=== PATIENT | female | born 2000 | race Caucasian/White ===

== ENCOUNTER 2022-04-01 13:42 | Emergency (ER) | payer OTHER, SELFPAY ==
[2022-04-01 13:51] VITALS: BP 131/91; PULSE 90; RESP 18; TEMP 36.6; O2SAT 100; BMI 22.7
--- OUTSIDE RECORDS SUMMARY | 2022-04-01 14:33 | XMS_ITS ---
:2001 Author Care Team Providers Name Role Phone Alcides Pelaez Primary Care Provider Unavailable Allergies Code Code System Name Reaction Severity Status Onset NKDA ? Medications Name Status Start Date Stop Date ? ? albuterol sulfate HFA 90 mcg/actuation aerosol inhaler Completed ? 02/24/2022 alprazolam 0.5 mg tablet Active ? Not jelani ilable amoxicillin 500 mg capsule Completed ? 01/23 amoxicillin 875 mg tablet Completed ? 2019 amoxicillin 875 mg-potassium clavulanate 125 mg tablet Completed ? 01/08/2020 azithromycin 250 mg tablet Completed ? 01/07 benzonatate 100 mg capsule Completed ? 02/24 cephalexin 500 mg capsule Completed ? 2021 clonidine Completed ? 07/24/2018 2 daily clonidine HCl 0.1 mg tablet Completed ? 12/19 clonidine HCl ER 0.1 mg tablet,extended release,12 hr Completed ? 01/23/2021 Take 2 tablets every day by oral route in the evening for 90 da ys. dexmethylphenidate 5 mg tablet Completed ? 0 10/26/2017 drospirenone 3 mg-ethinyl estradiol 0.03 mg tablet Active ? Not available TAKE ONE TABLET BY MOUTH EVERY DAY (NO DAYS OFF CONTINUOUS USE) etonogestrel 0.12 mg-ethinyl estradiol 0.015 mg/24 hr Completed ? 08/26/2020 vaginal ring Flucelvax Quad (PF) 60 mcg (15 mcg x 4)/0.5 mL IM syri nge Completed ? 09/03/2021 TO BE ADMINISTERED BY PHARMACIST FOR IMMUNIZATION Focalin 2.5 mg tablet Completed ? 10/26/2017 gabapentin 300 mg capsule Completed ? 2017 gabapentin 400 mg capsule Completed ? 2017 hydrocodone 5 mg-acetaminophen 325 mg tablet Completed ? 01/23/2021 Lo-Zumandimine (28) 3 mg-0.02 mg tablet Completed ? 09/11/2021 melatonin Completed ? 02/24/2022 ofloxacin 0.3 % ear drops Completed ? 2019 ondansetron 4 mg disintegrating tablet Completed ? 02/24/2022 TAKE 1 TABLET BY MOUTH EVERY 8 HOURS NEEDED FOR NAUSEA ondansetron HCl 4 mg tablet Completed ? 12/2021 oxycodone 5 mg tablet Completed ? 02/24/2022 polymyxin B sulfate 10,000 unit-trimethoprim 1 mg/mL eye drops C ompleted ? 01/08/[address] PLACE ONE DROP into affected eye(s) PREMA RY 6 HOURS FOR 48 hours THEN THREE TIMES DAILY FOR 7 DAYS sertraline 100 mg tablet Active ? Not jelani ilable TAKE 1 TABLET BY MOUTH EVERY DAY sertraline 25 mg tablet Completed ? 01/08/20 sertraline 50 mg tablet Completed ? 01/24/20 Vyvanse 10 mg capsule Completed ? 01/23/2021 TAKE ONE CAPSULE BY MOUTH EVERY MORNING Vyvanse 20 mg capsule Completed ? 09/11/2021 Vyvanse 30 mg capsule Active ? Not availa ble Take 1 capsule every day by oral route. Zoloft Completed ? 01/08/2020 75mg (50+25) daily Problems Name Status Onset Date Source ? Macromastia Active 10/26/2017 ? Orgasm Incapacity Active 07/25/2018 ? Dysmenorrhea Active 07/25/2018 ? Fatigue Active 07/25/2018 ? Attention Deficit Hyperactivity Disorder Active 020 ? Premenstrual Dysphoric Disorder Active 08/26/2020 ? Pericardial Cyst Active 11/13/2021 ? Anxiety Active ? ? Procedures Date Name Performed by ? 02/04/2022 Thoracic Surgery Ss Information not avai lable Results Lab Results Date Name Specimen Result Interpretation Description Value Range Status Address ? 02/24/2022 Chlamydia + ? Result CT Not ? ? In-Office Gonorrhea Chlamydia Detected Or myesha: DNA Panel, Trachomatis/Not Internal Use Unspecified Detected Onl y DO Not Specimen Attach Compendium DO Not Attach Compendium , Do Not Delete/yola ge ? ? ? Result NG Not ? ? In-Office Neisseria Detected Order : Gonorrhea/Not Int ernal Use Detected Only DO Not Attach Compendium DO Not Attach Compendium , Do Not Delete/yola ge 02/24/2022 Screening ? R Eye Corrected 20/20 ? ? In-Office Test of Order: Visual Internal U se Acuity, Only DO N ot Quantitative Jori ch , Bilateral Compe ndium DO (PROC) Not Attach Compendium , Do Not Delete/yola ge ? ? ? L Eye Corrected 20/25 ? ? In-Office Order: Internal U se Only DO No t Attach Compendium DO Not Attach Compendium , Do Not Delete/yola ge ? ? ? Bilateral Eyes 20/20 ? ? I n-Office Corrected Order: Internal U se Only DO No t Attach Compendium DO Not Attach Compendium , Do Not Delete/yola ge 02/24/2022 Hearing ? Right Ear 500Hz Pass 25Db ? ? In-Office Screening* Order: Internal U se Only DO No t Attach Compendium DO Not Attach Compendium , Do Not Delete/yola ge ? ? ? Left Ear 500Hz Pass 25Db ? ? In-Office Order: Internal U se Only DO No t Attach Compendium DO Not Attach Compendium , Do Not Delete/yola ge ? ? ? Right Ear Pass 25Db ? ? In- Office 1000Hz Order: Internal U se Only DO No t Attach Compendium DO Not Attach Compendium , Do Not Delete/yola ge ? ? ? Left Ear 1000Hz Pass 25Db ? ? In-Office Order: Internal U se Only DO No t Attach Compendium DO Not Attach Compendium , Do Not Delete/yola ge ? ? ? Right Ear Pass 25Db ? ? In- Office 2000Hz Order: Internal U se Only DO No t Attach Compendium DO Not Attach Compendium , Do Not Delete/yola ge ? ? ? Left Ear 2000Hz Pass 25Db ? ? In-Office Order: Internal U se Only DO No t Attach Compendium DO Not Attach Compendium , Do Not Delete/yola ge ? ? ? Right Ear Pass 25Db ? ? In- Office 4000Hz Order: Internal U se Only DO No t Attach Compendium DO Not Attach Compendium , Do Not Delete/yola ge ? ? ? Left Ear 4000Hz Pass 25Db ? ? In-Office Order: Internal U se Only DO No t Attach Compendium DO Not Attach Compendium , Do Not Delete/yola ge 05/16/2020 SARS CoV 2 ? Sars-cov-2, SABRINA not not Final [facility] RNA detected detecte ([place]): (COVID-19), d [address], QL, cullet washer-PCR, [facility] Respiratory Specimen 11/05/2019 CT + NG RNA, UR ? Chlamydia negative negativ Final [facility] PCR, Trachomatis, SABRINA e ([place]): Unspecified [address], Specimen [place] ? ? UR ? Neisseria negative negativ Final Lab varun Gonorrhoeae, SABRINA e ([place]): [address], [place] 11/05/2019 Hsv (1+2) ? Hsv 1 IgG, Type <0.91 0.00-0. Final [facility] Igg Ab, Spec index 90 [facility] Serum index [address], [place] ? ? ? Hsv 2 IgG, Type <0.91 0.00-0. Final [facility] Spec index 90 ([facility]): index [address], [place] 11/05/2019 RPR (Rapid ? Rpr non non Final [facility] Plasma reactive reactiv ([facility]): [place]), e [address], Serum [place] 11/05/2019 HIV 1+2 AB + ? HIV Screen 4TH non non Final [facility] HIV 1 P24 Generation Wrfx reactive reactiv ([place]): Ag, e [address], Qualitative [place] Immunoassay, Serum 12/20/2018 TSH + Free ? Tsh 1.430 0.450-4 Final [facility] T4, Serum uIU/mL .500 ([facility] [place]): uIU/mL [address] [facility], [place] ? ? ? T4,Free(direct) 1.10 0.93-1. Final [facility] NG/dL 60 ([facility] n): NG/dL [address], [place] 12/20/2018 CBC W/ Auto ? Wbc 7.4 3.4-10. Final [facility] Diff x10e3/uL 8 ([facility]): x10e3/u [address], L [place] ? ? ? Rbc 4.94 3.77-5. Final [facility] x10e6/uL 28 ([facility]): x10e6/u [address], [place] ? ? ? Hemoglobin 13.9 g/dL 11.1-15 Final [facility] .9 g/dL ([facility] [address], [place] ? ? ? Hematocrit 42.4 % 34.0-46 Final [facility] orp .6 % ([facility] n): [address], [place] ? ? ? Mcv 86 fL 79-97 Final [facility] fL ([facility] n): [address], [place] ? ? ? Mch 28.1 pg 26.6-33 Final [facility] .0 pg ([facility] n): [address], [place] ? ? ? Mchc 32.8 g/dL 31.5-35 Final [facility] p .7 g/dL ([facility] [address], [place] ? ? ? Rdw 12.4 % 12.3-15 Final [facility] .4 % ([facility] n): [address], [place] ? ? ? Platelets 317 150-450 Final [facility] x10e3/uL x10e3/u ([facility]): L [address], [place] ? ? ? Neutrophils 58 % not Final [facility] or[facility] estab. ([facility] n): % [address], [place] ? ? ? Lymphs 31 % not Final [facility] estab. ([facility] n): % [address], [place] ? ? ? Monocytes 9 % not Final [facility] p estab. ([facility] n): % [address], [place] ? ? ? Eos 1 % not Final [facility] estab. ([facility] n): % [address], [place] ? ? ? Basos 1 % not Final [facility] estab. ([facility] n): % [address], [place] ? ? ? Immature Cells web applications architect ? Cancel [facility] led ([facility] n): [address], [place] ? ? ? Neutrophils 4.4 1.4-7.0 Final Lab varun (Absolute) x10e3/uL x10e3/u ([place]): L [address], [place] ? ? ? Lymphs 2.3 0.7-3.1 Final [facility] (Absolute) x10e3/uL x10e3/u ([place]): L [address], [place] ? ? ? Monocytes(absol 0.7 0.1-0.9 Final [facility] johnson) x10e3/uL x10e3/u ([facility]): L [address] [facility], [place] ? ? ? Eos (Absolute) 0.1 0.0-0.4 Final [facility] x10e3/uL x10e3/u ([facility]): L [address] [facility], [place] ? ? ? Baso (Absolute) 0.1 0.0-0.3 Final [facility] x10e3/uL x10e3/u ([facility]): L [address] [facility], [place] ? ? ? Immature 0 % not Final [facility] Granulocytes estab. ([facility]): % [address] [facility], [place] ? ? ? Immature Grans 0.0 0.0-0.1 Final [facility] (Abs) x10e3/uL x10e3/u ([facility]): L [address] [facility], [place] ? ? ? Nrbc web applications architect ? Cancel [facility] led ([facility]): [address] [facility] ? ? ? Hematology web applications architect ? Cancel [facility] Comments: led ([facility]): [address] [facility] 12/20/2018 CMP, Serum ? Glucose 80 mg/dL 65-99 Final [facility] or Plasma mg/dL ([facility]): [address] [facility] ? ? ? Bun 10 mg/dL 5-18 Final [facility] mg/dL ([facility]): [address] [facility] ? ? Below Creatinine 0.54 0.57-1. Final [facility] Low mg/dL 00 ([facility]): Normal mg/dL [address] [facility] ? ? ? BUN/creatinine 19 10-22 Final [facility] Ratio ([facility]): [address] [facility] ? ? ? Sodium 141 134-144 Final [facility] mmol/L mmol/L ([facility]): [address] [facility] ? ? ? Potassium 4.4 3.5-5.2 Final [facility] mmol/L mmol/L ([facility]): [address] [facility] ? ? ? Chloride 105 96-106 Final [facility] mmol/L mmol/L ([facility]): [address] [facility] ? ? ? Carbon Dioxide, 22 mmol/L 20-29 Renetta l [facility] Total mmol/L ([facility] n): [address] [facility], [place] ? ? ? Calcium 9.6 mg/dL 8.9-10. Final [facility] orp 4 mg/dL ([facility] on): [address], [place] ? ? ? Protein, Total 6.8 g/dL 6.0-8.5 Final [facility] g/dL ([facility] n): [address], [place] ? ? ? Albumin 4.3 g/dL 3.5-5.5 Final [facility] g/dL ([facility] n): [address], [place] ? ? ? Globulin, Total 2.5 g/dL 1.5-4.5 Renetta l [facility] g/dL ([facility] n): [address] [facility], [place] ? ? ? A/g Ratio 1.7 1.2-2.2 Final [facility] ([facility] n): [address] [facility], [place] ? ? ? Bilirubin, 0.3 mg/dL 0.0-1.2 Final [facility] Total mg/dL ([facility]): [address] [facility], [place] ? ? ? Alkaline 61 IU/L 45-101 Final [facility] p Phosphatase IU/L ([facility]): [address] [facility], [place] ? ? ? Ast (Sgot) 8 IU/L 0-40 Final [facility] IU/L ([facility]): [address] [facility], [place] ? ? ? Alt (Sgpt) 8 IU/L 0-24 Final [facility] IU/L ([facility]): [address] [facility] 12/20/2018 Vitamin B12 ? Vitamin B12 326 pg/mL 232-12 4 Final [facility] + Folate, 5 pg/mL ([facility]): Serum or [address], Blood [place] ? ? ? Folate (Folic >20.0 >3.0 Final [facility] Acid), Serum NG/mL NG/mL ([facility]): [address] [facility] 12/20/2018 Vitamin D, ? Vitamin D, 34.0 30.0-10 Fin al [facility] 25-Hydroxy, 25-Hydroxy NG/mL 0.0 ( [place]): Total, Serum NG/mL [address] [facility] 12/20/2018 Ferritin, ? Ferritin, Serum 49 NG/mL 15-77 Final [facility] Serum or NG/mL ([facility]): Plasma [address] [facility] 07/10/2018 CMP, Serum ? Glucose 87 mg/dL 65-99 Final [facility] or Plasma mg/dL ([facility]): [address] [facility], [place] ? ? ? Bun 14 mg/dL 5-18 Final [facility] mg/dL ([facility]): [address] [facility], [place] ? ? ? Creatinine 0.60 0.57-1. Final [facility] mg/dL 00 ([facility]): mg/dL [address] [facility], [place] ? ? Above BUN/creatinine 23 10-22 Final [facility] High Ratio ([facility]): Normal [address] [facility], [place] ? ? ? Sodium 139 134-144 Final [facility] mmol/L mmol/L ([facility]): [address] [facility], [place] ? ? ? Potassium 4.8 3.5-5.2 Final [facility] mmol/L mmol/L ([facility]): [address] [facility], [place] ? ? ? Chloride 98 mmol/L 96-106 Final [facility] mmol/L ([facility]): [address] [facility], [place] ? ? ? Carbon Dioxide, 22 mmol/L 20-29 Renetta l [facility] Total mmol/L ([facility]): [address] [facility], [place] ? ? ? Calcium 10.2 8.9-10. Final [facility] mg/dL 4 mg/dL ([facility] on): [address] [facility] ? ? ? Protein, Total 7.2 g/dL 6.0-8.5 Final [facility] g/dL ([facility]): [address] [facility] ? ? ? Albumin 4.9 g/dL 3.5-5.5 Final [facility] g/dL ([facility]): [address] [facility], [place] ? ? ? Globulin, Total 2.3 g/dL 1.5-4.5 Renetta l [facility] g/dL ([facility]): [address] [facility], [place] ? ? ? A/g Ratio 2.1 1.2-2.2 Final [facility] ([facility] ? ? ? Bilirubin, 0.2 mg/dL 0.0-1.2 Final [facility] Total mg/dL ([facility]): [address] [facility] ? ? ? Alkaline 96 IU/L 45-101 Final [facility] p Phosphatase IU/L ([facility]): [address] [facility] ? ? ? Ast (Sgot) 13 IU/L 0-40 Final [facility] IU/L ([facility]): [address] [facility] ? ? ? Alt (Sgpt) 19 IU/L 0-24 Final [facility] IU/L ([facility]): [address] [facility] 07/10/2018 Lipid Panel, ? Cholesterol, 163 mg/dL 100- 169 Final [facility] Serum Total mg/dL ([facility]): [address] [facility] ? ? Above Triglycerides 134 mg/dL 0-89 Final [facility] High mg/dL ([facility]): Normal [address] [facility] ? ? ? HDL Cholesterol 45 mg/dL >39 Final [facility] mg/dL ([facility]): [address] [facility] ? ? ? VLDL 27 mg/dL 5-40 Final [facility] Cholesterol Sarabjit mg/dL ( [place]): [address] [facility] ? ? ? LDL Cholesterol 91 mg/dL 0-109 Final [facility] Calc mg/dL ([facility]): [address] [facility] ? ? ? Comment: web applications architect ? Cancel [facility] led ([facility]): [address] [facility] ? ? ? T. chol/HDL 3.6 ratio 0.0-4.4 Final [facility] Ratio ratio ([facility]): [address] [facility] 07/10/2018 HbA1C ? Hemoglobin a1C 5.3 % 4.8-5.6 Fin al [facility] (Hemoglobin % ([facility]): a1C), Blood [address] [facility] Past Encounters 02/24/2022 Well Child; Anxiety; Attention Deficit H yperactivity Disorder; Dysmenorrhea; Contraception Care Management; Normal Weight; Exercises Education, Guidance, and Counseling; Diet Education; Screening for Disorder; Administration of Influenza Vaccine Meena Houston MD: [id number], [address], [place] [address], Ph. [phone] 09/25/2021 Mediastinal Mass Meena Houston MD: [address], [address], [place] [address], Ph. [phone] 09/11/2021 Anxiety; Attention Deficit Hyperactivity Disorder; Dysmenorrhea Meena Houston MD: [id number] [facility], [facility] [address], [place] [address], Ph. [phone] 01/23/2021 Anxiety; Attention Deficit Hyperactivity Disorder; Dysmenorrhea; Wheezing Meena Houston MD: [id number] [facility] [address] [address], [address], [place] [address], Ph. [phone] Social History None recorded. Vaccine List Vaccine Type DT (pediatric) 06/17/2004 DTaP, unspecified formulation 2001 2001 2001 11/09/2002 07/20/2005 Hep A, ped/adol, 2 dose 11/04/2005 05/18/2006 Hep B, unspecified formulation 2001 2001 2001 Hib, unspecified formulation 2001 2001 2001 06/01/2002 HPV, quadrivalent 10/22/2015?0.5 mL HPV9 10/25/2016?0.5 mL influenza nasal, unspecified formulation 05/01/2009 03/22/2013 influenza, injectable, quadrivalent, pre servative free 02/24/2022 MCV4, unspecified formulation 08/01/2014 meningococcal MCV4P 10/26/2017?0.5 mL MMR 03/02/2002 07/20/2005 Pneumococcal Conjugate, unspecified form ulation 11/09/2002 polio, unspecified formulation 2001 2001 11/09/2002 07/20/2005 Tdap 08/19/2011 02/24/2022?0.5 mL TST-PPD intradermal 03/02/2002 08/19/2011 varicella 03/02/2002 07/20/2005 Plan of Care Patient Instructions Your child looks great. Please return i n one year for next well visit. No vaccines were needed at this visit. Make sure to use helmets for activities, always wear seat belt/sit in right seat for your age. Bru sh your teeth 2 times a day and see the dentist every 6 months. Watch less than 2 hours of TV a day and try to stay healthy by eating a good variety of foods and ge tting exercise daily. Do not smoke, drink,?or do drugs. Reminders Provider Appointments None recorded. ? ? Lab None recorded. ? ? Referral None recorded. ? ? Procedures None recorded. ? ? Surgeries None recorded. ? ? Imaging None recorded. ? ? Vitals 02/24/2022 01:30PM Wellness Visit Height Weight BMI Blood Pressure 64 in 130 lbs 22.3 kg/m2 118/62 mm[Hg] 01/08/2020 10:00AM [facility] Wellness Virtual Visit Weight 122 lbs 16 oz 02/01/2019 12:15PM Same Day Visit Weight 137 lbs 9.6 oz 12/20/2018 11:45AM Wellness Visit Height Weight BMI Blood Pressure 63.5 in 136 lbs 12.8 oz 23.9 kg/m2 110/68 mm[Hg] 07/24/2018 03:30PM Established Patient Height Weight BMI Blood Pressure 64 in 141 lbs 6.4 oz 24.3 kg/m2 98/68 mm[Hg] 10/26/2017 03:00PM Wellness Visit Height Weight BMI Blood Pressure 64 in 140 lbs 6.4 oz 24.1 kg/m2 92/60 mm[Hg] 05/02/2017 03:30PM Established Patient Weight 139 lbs 10/25/2016 10:30AM Wellness Visit Height Weight BMI Blood Pressure 64 in 126 lbs 21.6 kg/m2 114/74 mm[Hg] 10/22/2015 03:30PM Physical Height Weight BMI Blood Pressure 61.5 in 113 lbs 21 kg/m2 110/70 mm[Hg] 03/04/2015 03:30PM New Patient Height Weight BMI 60.75 in 108 lbs 20.6 kg/m2
--- OUTSIDE RECORDS SUMMARY | 2022-04-01 14:33 | XMS_ITS | Encounter Summary ---
:2000 Author Reason for Visit None recorded. Assessment and Plan 1. Well child Doing well. Questions discussed. Antici patory guidance given. Vaccines per schedule. ? hearing screening* ? screening test of visual acuity, jil titative, bilateral (PROC) ? Adacel (Tdap Adolesn/Adult)(PF)2 Lf-( 2.5-5-3-5)-5 Lf/0.5 mL IM syringe 2. Anxiety with depressive features feels like things are situational ? sertraline 100 mg tablet 3. Attention deficit hyperactivity diso rder Stable on current regimen. Medication r efilled x 3 months. Med check needed in 6 months. Call with concerns or problems. Discussion of time management, impulsivity, organization and executive functioning t o work on. ? Vyvanse 30 mg capsule ? Vyvanse 30 mg capsule ? Vyvanse 30 mg capsule 4. Dysmenorrhea likes current OCP. Ok to refill until w ellness. 5. Contraception care management would like to get nexplanon. [employer] referr al. has seen [facility] women's care in the past. ? drospirenone 3 mg-ethinyl estradiol 0 .03 mg tablet 6. Normal weight 7. Exercises education, guidance, and c ounseling 8. Diet education 9. Screening for disorder ? chlamydia + gonorrhea DNA panel, unsp ecified specimen 10. Administration of influenza vaccine ? Fluzone Quad [id number] (PF) 60 mcg (1 5 mcg x 4)/0.5 mL IM syringe Discussion Note: None recorded.Patient educational handouts: No information available. Plan of Care Patient Instructions Your child [...] Provider Appointments None recorded. ? ? Lab Chlamydia + Gonorrhea DNA Panel, 02/24/2022 In-Office Order Unspecified Specimen Referral None recorded. ? ? Procedures Screening Test of Visual Acuity, 02/24/2022 In-Office Order Quantitative, Bilateral (PROC) Surgeries None recorded. ? ? Imaging None recorded. ? ? Medications Name Start Date ? ? drospirenone 3 mg-ethinyl estradiol 0.03 mg tablet ? TAKE ONE TABLET BY MOUTH EVERY DAY (NO DAYS OFF DAYDAY NUOUS USE) sertraline 100 mg tablet ? TAKE 1 TABLET BY MOUTH EVERY DAY Vyvanse 30 mg capsule ? Take 1 capsule every day by oral route. Medications Administered None recorded. Vitals Height Weight BMI Blood Pressure 64 in 130 lbs 22.3 kg/m2 118/62 mm[Hg] Results Lab Results Date Name Specimen Result Interpretation Description Value Range Status Address ? 02/24/2022 Chlamydia + ? Result Chlamydia CT Not ? ? In-Office Gonorrhea DNA Trachomatis/Not Detected Order: Internal Panel, Detected Use Only DO Not Unspecified Attac h Specimen Compendi um DO Not Attach Compendium , Do Not Delete/yola ge ? ? ? Result Neisseria NG Not ? ? In-Office Gonorrhea/Not Detected O rder: Internal Detected Use Only DO Not Attach Compendium DO Not Attach Compendium , Do Not Delete/yola ge Allergies Code Code System Name Reaction Severity Onset NKDA ? ? ? Problems Name Status Onset Date Source ? Macromastia Active 10/26/2017 ? Orgasm Incapacity Active 07/25/2018 ? Dysmenorrhea Active 07/25/2018 ? Fatigue Active 07/25/2018 ? Attention Deficit Hyperactivity Disorder Active 020 ? Premenstrual Dysphoric Disorder Active 08/26/2020 ? Pericardial Cyst Active 11/13/2021 ? Anxiety Active ? ? Procedures Date Name Performed by ? 02/04/2022 Thoracic Surgery Ss Information not avai lable Vaccine List Vaccine Type DT (pediatric) 06/17/2004 [...] TST-PPD intradermal 03/02/2002 08/19/2011 varicella 03/02/2002 07/20/2005 Social History Custody joint Notes: , M om and Stepdad, father Do you have any siblings? younger sister Functional Status Unknown. Past Encounters 02/24/2022 Well Child; Anxiety; Attention Deficit H yperactivity Disorder; Dysmenorrhea; Contraception Care Management; Normal Weight; Exercises Education, Guidance, and Counseling; Diet Education; Screening for Disorder; Administration of Influenza Vaccine Meena Houston MD: [address] [place] [address], [address], [place] [id number], Ph. [phone] History of Present Illness None recorded. Review of Systems ? Pediatric Female Reported By: Patient Constitutional: Constitutional: no significa nt weight change, gaining weight as expected, good appetite, normal energy level, no fever, no chills, happy/content, milton l activity level, no fatigue Eyes: Eyes: no vision problems, no eye pain, no blurry vision, no eye redness, no eye itchines s, no eye swelling, no eye discharge, normal movement ENMT: ENMT: no ear pain, no ear di scharge, no hearing loss, no sinus pressure, no drooling, no fa cial swelling, no congestion, no sore throat, no hoarseness, no mouth lesions Cardiovascular: Cardiovascular: no chest anna n, normal heart rate Chest/Breasts: Breasts: no lumps, no tender ness, no discharge; feels breasts are too large. Discussed sup port needs and ways to feel secure, no back pain, doesn' t like unwanted attention Respiratory: Respiratory: no cough, no wh eezing, no chest tightness, no pain with respiration, milton l respiration Gastrointestinal: GI: no difficulty swallowing , no abdominal pain, no nausea, no vomiting, no diarrhea, no co nstipation, no blood in stools, no mucous in stool Genitourinary: : no urethral discharge, n o blood in urine, no pain with urination, no increase in fr equency of urination, no voiding urgency, no vaginal discharg e, no genital lesions Musculoskeletal: Musculoskeletal: no soft tis ana swelling, no joint swelling, no myalgia, moves all extrem eties well, no previous injuries, no trauma Skin: Skin: no pain, no itchiness, no skin dryness, no flaking, no redness, no rash, no hives, no skin lesions, no skin growths, no skin lumps, no swelling, no bruising, no insect bites Neurological symptoms: Neurological: no numbness, n o weakness, no tingling, no burning, no shooting pain, n o headache, no dizziness, no loss of conciousness Psychiatric: Psych: anxiety Physical Exam ? 11-13 Yr WC Female Reported By: Patient Unit Technician: Unit Technician: present General Appearance: General: well developed, wel l-nourished, no acute distress Eyes: External Eye: no discharge. Conjunctiva: non-injected. Pupils: equal size, round, reactive to light. Extraocul ar Movements: normal cover/uncover test Ears, Nose, Throat: Ears: tympanic membranes pea rly w/ good landmarks, pinnae well-forme d, no pits. Nose: patent, no crusts/sores. Ton sils: not enlarged, no erythema, no exudate. Aniket th: normal dentition. Oropharynx: milton l mucous membranes Lymph Nodes: Lymph Nodes: no cervical lym phadenopathy, no inguinal lymphadenopathy Neck: Thyroid: not enlarged, non-t shelley, no palpable nodules, no asymmetry Chest: Breasts: symmetric Cardiovascular (supine and upright): Apical impulse: n ot displaced. Rhythm: regular. Heart Sounds (upright): norm al S1, normal S2, no murmur, no gallops, no rub. Heart Sounds (supine): Normal S1, Normal S2, no murmur, no gallops, no rub. Palpation: normal femoral pulse Lungs: Auscultation: clear to auscu ltation, no wheezing, no rales/crackles, no rhonchi, no tachypnea, no retractions Abdomen: Palpation: non-distended, no guarding, no tenderness. Liver: non-tende r, no hepatomegaly. Spleen: non-tender, no splen omegaly Musculoskeletal: General Musculoskeletal: татьяна ssly normal movement of all extremities. Thoracol umbar spine: no scoliosis Skin: Color and Pigmentation: no c yanosis, no rash, no lesions, no acne Neurological System: Mental Status: normal affect , normal mood. Motor: normal strength, norm al tone
--- NOTE | 2022-04-01 14:50 | ED.GENADULT ---
HPI - General Adult General Chief complaint: Shortness of Breath/Dyspnea Stated complaint: Short of breath Time Seen by Provider: 04/01/22 13:44 History of Present Illness HPI narrative: This 22-year-old female comes in reporting chest discomfort and a sense of shortness of breath on and off over the past couple weeks. She does not have any respiratory infection symptoms. He does not have any fevers. She did have a surgery to the right side of her chest about 2 months ago. She had a teratoma removed and states that she recovered from this within a couple weeks afterwards. 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 She wonders if there is a primary anxiety component driving these symptoms. She arrives here with normal vital signs, normal oximetry, and normal heart rate. Related Data Home Medications Medication Instructions Recorded Confirmed sertraline 100 mg tablet mg 04/01/22 Allergies Allergy/AdvReac Type Severity Reaction Status Date / Time No Known Drug Allergies Allergy Verified 04/01/22 13:56 Review of Systems Status of ROS: Reports: 10 or more systems reviewed and unremarkable except as noted in History and below Narrative: Constitutional: No fevers, no weight gain or loss. Eyes: No discharge. No vision changes. HENT: No congestion, no sore throat, no ear pain. Cardiovascular: No palpitations. Chest discomfort as described above. Respiratory: No shortness of breath, no wheezes, no cough. Gastrointestinal: No abdominal pain, no vomiting, no diarrhea. Genitourinary: No dysuria, no hematuria. Musculoskeletal: Normal range of motion. Skin: No rashes, no pruritis. Neurological: No dizziness, weakness, sensory change, speech change. Endo/Heme/Allergies: No bruising or bleeding. No polydipsia. Pysch: no suicidality, no anxiety, no insomnia. All other systems reviewed and are negative. PFSH PFSH Social History Smoking Status: Never smoker Do you use any of these nicotine containing products: None How often do you have a drink containing alcohol: never How often do you have six or more drinks on one occasion: Never AUDIT-C Alcohol total score: 0 Non-prescribed substance use: denies use Exam Narrative: Exam Narrative: Constitutional: Well-developed, well-nourished, no acute distress. HEENT: Normocephalic, atraumatic. Neck: Normal range of motion. Nontender. Supple. Heart: Regular. No murmurs. Normal rate. Intact distal pulses. Lungs: Clear to auscultation. No chest discomfort. No wheezes, rhonchi, or rales. Chest: Normal healing surgical wounds. No sign of infection. Abdomen: Normal bowel sounds. Nontender. No rebound tenderness. Genitalia: Deferred. Back: No midline tenderness. Normal range of motion. Extremities: Normal range of motion. No injury. Skin: Intact. No rash. Warm. No erythema or pallor. Neurologic: No altered sensation. No weakness. Alert and oriented. Psychiatric: No suicidality. No anxiety or depression. No insomnia. Nursing notes and vitals signs are reviewed. Const: Vital Signs, click to edit/add: Vital Signs - 24 hr 04/01/22 13:51 Temperature 97.8 F Pulse Rate [Right Pulse Oximeter] 90 Respiratory Rate 18 Blood Pressure [Ri ght Upper Arm] 131/91 H Pulse Oximetry 100 Oxygen Delivery Me thod Room Air Course Vital Signs Vital signs: Initial Vital Signs Temperature 97.8 F 04/01/22 13:51 Temperature Source Temporal Artery Scan 04/01/22 13:51 Pulse Rate 90 04/01/22 13:51 Respiratory Rate 18 04/01/22 13:51 Blood Pressure 131/91 H 04/01/22 13:51 Blood Pressure Mean 104 04/01/22 13:51 Blood Pressure Position Sitting 04/01/22 13:51 Pulse Oximetry 100 04/01/22 13:51 Oxygen Delivery Method 04/01/22 13:51 Vital Signs Temperature 97.8 F 04/01/22 13:51 Pulse Rate 90 04/01/22 13:51 Respiratory Rate 18 04/01/22 13:51 Blood Pressure 131/91 H 04/01/22 13:51 Pulse Oximetry 100 04/01/22 13:51 Oxygen Delivery Method 04/01/22 13:51 Temperature 97.8 F 04/01/22 13:51 Pulse Rate 90 04/01/22 13:51 Respiratory Rate 18 04/01/22 13:51 Blood Pressure 131/91 H 04/01/22 13:51 Pulse Oximetry 100 04/01/22 13:51 Oxygen Delivery Method 04/01/22 13:51 Medical Decision Making MDM Narrative Medical decision making narrative: This patient comes in reporting chest discomfort on occasion as described above. She does not have any exercise tolerance. She does not have any nausea, vomiting, or diaphoresis. She does report some feeling of lightheadedness or shortness of breath. She states that there is an anxiety component related to this additionally because of her surgery that occurred a couple months ago. I did discuss lab and imaging options with the patient who is concerned about cost. In a process of shared decision making she declined CT or x-ray imaging and lab results. I did use bedside ultrasound unofficially to view her lungs and parasternal view was of her heart. These appeared normal and were reassuring to the patient. Discharge Plan Discharge Clinical Impression: Chest wall pain Patient Disposition: Home, Self-Care Condition: Stable Additional Instructions: Continue current plans. Follow up with MD or return if worsening symptoms happen. Prescriptions: No Action sertraline 100 mg tablet Follow Up/Referrals: Provider,Not a Local [Primary Care Provider] - Stand Alone Forms: [employer] Info Instructions
--- NOTE | 2022-04-01 14:52 | ED.NURSE ---
no change in condition
== END 2022-04-01 15:01 | disposition home or self-care (01) ==
PROVIDERS: Emergency Provider Emergency Medicine Emergency Medical Services
DX: R07.89 Other chest pain (principal)
CPT/HCPCS: 99282; 99283; 99284

== ENCOUNTER 2022-04-12 01:14 | Emergency (ER) | payer OTHER, SELFPAY ==
[2022-04-12 01:29] VITALS: BP 140/97; PULSE 75; RESP 16; TEMP 36.1; O2SAT 98; BMI 23.3
--- NOTE | 2022-04-12 01:54 | CRLHL7_ITS ---
For Patients: As a result of the Cures Act, medical imaging exams and procedure reports are released immediately into your electronic medical record. You may view this report before your referring provider. If you have questions, please contact your health care provider. INDICATION: IUD confirmation TECHNIQUE: Pelvis radiograph 1 view COMPARISON: None FINDINGS: Bone: No acute fractures or aggressive bone lesions are identified. Joint: The hip joints are unremarkable. The visualized sacroiliac joints are unremarkable in appearance. The pubic symphysis is normal in appearance. Soft tissue: Unremarkable. IUD is noted within the midline pelvis. No radiopaque foreign bodies are seen. IMPRESSION: 1. IUD is noted within the midline pelvis. Dictated by Chris Jesus MD @ 04/12/2022 2:27:02 AM Dictated by: Chris Jesus MD @ 04/12/2022 02:27:08 (Electronically Signed)
--- OUTSIDE RECORDS SUMMARY | 2022-04-12 02:34 | XMS_ITS ---
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 Chlamydia negative negativ Final [facility] PCR, Trachomatis, SABRINA e ([place]): Unspecified [address], Specimen [place] ? ? UR ? Neisseria negative negativ Final Lab varun Gonorrhoeae, SABRINA e ([place]): [address], [place] 11/05/2019 Hsv (1+2) ? Hsv 1 IgG, Type <0.91 0.00-0. Final [facility] Igg Ab, [facility] Serum index [address], [place] ? ? ? Hsv 2 IgG, Type <0.91 0.00-0. Final [facility] Spec index 90 ([facility]): index [address], [place] 11/05/2019 RPR (Rapid ? Rpr non non Final [facility] Plasma reactive reactiv ([facility]): [place]), e [address], Serum [place] 11/05/2019 HIV 1+2 AB + ? HIV Screen 4TH non non Final [facility] HIV 1 P24 Generation Wrfx reactive reactiv ([place]): Ag, e [address], Qualitative Izabel flip Immunoassay, Serum 12/20/2018 TSH + Free ? Tsh 1.430 0.450-4 Final [facility] T4, Serum uIU/mL .500 ([facility] [place]): uIU/mL [address] [facility], [place] ? ? ? T4,Free(direct) 1.10 0.93-1. Final [facility] NG/dL 60 ([facility]): NG/dL [address], [place] 12/20/2018 CBC W/ Auto ? Wbc 7.4 3.4-10. Final [facility] Diff x10e3/uL 8 ([facility]): x10e3/u [address], L [place] ? ? ? Rbc 4.94 3.77-5. Final [facility] x10e6/uL 28 ([facility] [place]): x10e6/u [address], L [place] ? ? ? Hemoglobin 13.9 g/dL 11.1-15 Final [facility] .9 g/dL [facility] [address], [place] ? ? ? Hematocrit 42.4 % 34.0-46 Final [facility] orp .6 % ([facility]): [address], [place] ? ? ? Mcv 86 fL 79-97 Final [facility] fL ([facility]): [address], [place] ? ? ? Mch 28.1 pg 26.6-33 Final [facility] .0 pg ([facility]): [address], [place] ? ? ? Mchc 32.8 g/dL 31.5-35 Final [facility] p .7 g/dL [facility] [address], [place] ? ? ? Rdw 12.4 % 12.3-15 Final [facility] .4 % ([facility]): [address], [place] ? ? ? Platelets 317 150-450 Final [facility] x10e3/uL x10e3/u ([facility]): L [address], [place] ? ? ? Neutrophils 58 % not Final [facility] orp estab. ([facility]): % [address], [place] ? ? ? Lymphs 31 % not Final [facility] estab. ([facility]): % [address], [place] ? ? ? Monocytes 9 % not Final [facility] p estab. ([facility]): % [address], [place] ? ? ? Eos 1 % not Final [facility] estab. ([facility]): % [address], [place] ? ? ? Basos 1 % not Final [facility] estab. ([facility]): % [address], [place] ? ? ? Immature Cells clothing man ? Cancel [facility] led ([facility]): [address], [place] ? ? ? Neutrophils 4.4 1.4-7.0 Final Lab varun (Absolute) x10e3/uL x10e3/u ([place]): L [address], [place] ? ? ? Lymphs 2.3 0.7-3.1 Final [facility] (Absolute) x10e3/uL x10e3/u ([place]): L [address], [place] ? ? ? Monocytes(absol 0.7 0.1-0.9 Final [facility] johnson) x10e3/uL x10e3/u ([facility]): L [address] [facility], [place] ? ? ? Eos (Absolute) 0.1 0.0-0.4 Final [facility] x10e3/uL x10e3/u ([facility]): L [address] [facility], [place] ? ? ? Baso (Absolute) 0.1 0.0-0.3 Final [facility] x10e3/uL x10e3/u ([facility]): L [address] [facility], [place] ? ? ? Immature 0 % not Final [facility] Granulocytes estab. ([facility]): % [address] [facility], [place] ? ? ? Immature Grans 0.0 0.0-0.1 Final [facility] (Abs) x10e3/uL x10e3/u ([facility]): L [address] [facility], [place] ? ? ? Nrbc clothing man ? Cancel [facility] led ([facility]): [address] [facility] ? ? ? Hematology clothing man ? Cancel [facility] r[facility] Comments: led ([facility]): [address] [facility] 12/20/2018 CMP, Serum ? Glucose 80 mg/dL 65-99 Final [facility] or Plasma mg/dL ([facility]): [address] [facility] ? ? ? Bun 10 mg/dL 5-18 Final [facility] mg/dL ([facility]): [address] [facility] ? ? Below Creatinine 0.54 0.57-1. Final [facility] orp Low mg/dL 00 ([facility]): Normal mg/dL [address] [facility] ? ? ? BUN/creatinine 19 10-22 Final [facility] Ratio ([facility]): [address] [facility] ? ? ? Sodium 141 134-144 Final [facility] mmol/L mmol/L ([facility]): [address] [facility] ? ? ? Potassium 4.4 3.5-5.2 Final [facility] mmol/L mmol/L ([facility]): [address] [facility] ? ? ? Chloride 105 96-106 Final [facility] mmol/L mmol/L ([facility]): [address] [facility] ? ? ? Carbon Dioxide, 22 mmol/L 20-29 Renetta l [facility] Total mmol/L ([facility]): [address] [facility], [place] ? ? ? Calcium 9.6 mg/dL 8.9-10. Final [facility] orp 4 mg/dL ([facility] on): [address], [place] ? ? ? Protein, Total 6.8 g/dL 6.0-8.5 Final [facility] g/dL ([facility]): [address], [place] ? ? ? Albumin 4.3 g/dL 3.5-5.5 Final [facility] g/dL ([facility]): [address], [place] ? ? ? Globulin, Total 2.5 g/dL 1.5-4.5 Renetta l [facility] g/dL ([facility]): [address] [facility], [place] ? ? ? A/g Ratio 1.7 1.2-2.2 Final [facility] rp ([facility]): [address] [facility], [place] ? ? ? Bilirubin, 0.3 mg/dL 0.0-1.2 Final [facility] Total mg/dL ([facility]): [address] [facility], [place] ? ? ? Alkaline 61 IU/L 45-101 Final [facility] p Phosphatase IU/L ([facility]): [address] [facility], [place] ? ? ? Ast (Sgot) 8 IU/L 0-40 Final [facility] IU/L ([facility]): [address] [facility], [place] ? ? ? Alt (Sgpt) 8 IU/L 0-24 Final [facility] IU/L ([facility]): [address] [facility] 12/20/2018 Vitamin B12 ? Vitamin B12 326 pg/mL 232-12 4 Final [facility] + Folate, 5 pg/mL ([facility]): Serum or [address], Blood [place] ? ? ? Folate (Folic >20.0 >3.0 Final [facility] Acid), Serum NG/mL NG/mL ([facility]): [address] [facility] 12/20/2018 Vitamin D, ? Vitamin D, 34.0 30.0-10 Fin al [facility] 25-Hydroxy, 25-Hydroxy NG/mL 0.0 ( [place]): Total, Serum NG/mL [address] [facility] 12/20/2018 Ferritin, ? Ferritin, Serum 49 NG/mL 15-77 Final [facility] Serum or NG/mL ([facility]): Plasma [address] [facility] 07/10/2018 CMP, Serum ? Glucose 87 mg/dL 65-99 Final [facility] or Plasma mg/dL ([facility]): [address] [facility], [place] ? ? ? Bun 14 mg/dL 5-18 Final [facility] mg/dL ([facility]): [address] [facility], [place] ? ? ? Creatinine 0.60 0.57-1. Final [facility] orp mg/dL 00 ([facility]): mg/dL [address] [facility], [place] ? ? Above BUN/creatinine 23 10-22 Final [facility] High Ratio ([facility]): Normal [address] [facility], [place] ? ? ? Sodium 139 134-144 Final [facility] mmol/L mmol/L ([facility]): [address] [facility], [place] ? ? ? Potassium 4.8 3.5-5.2 Final [facility] mmol/L mmol/L ([facility]): [address] [facility], [place] ? ? ? Chloride 98 mmol/L 96-106 Final [facility] orp mmol/L ([facility]): [address] [facility], [place] ? ? ? Carbon Dioxide, 22 mmol/L 20-29 Renetta l [facility] Total mmol/L ([facility]): [address] [facility], [place] ? ? ? Calcium 10.2 8.9-10. Final [facility] mg/dL 4 mg/dL ([facility] on): [address] [facility] ? ? ? Protein, Total 7.2 g/dL 6.0-8.5 Final [facility] g/dL ([facility]): [address] [facility] ? ? ? Albumin 4.9 g/dL 3.5-5.5 Final [facility] g/dL ([facility]): [address] [facility], [place] ? ? ? Globulin, Total 2.3 g/dL 1.5-4.5 Renetta l [facility] g/dL ([facility]): [address] [facility], [place] ? ? ? A/g Ratio 2.1 1.2-2.2 Final [facility] ([facility] [address] [facility] ? ? ? Bilirubin, 0.2 mg/dL 0.0-1.2 Final [facility] Total mg/dL ([facility]): [address] [facility] ? ? ? Alkaline 96 IU/L 45-101 Final [facility] p Phosphatase IU/L ([facility]): [address] [facility] ? ? ? Ast (Sgot) 13 IU/L 0-40 Final [facility] orp IU/L ([facility]): [address] [facility] ? ? ? Alt (Sgpt) 19 IU/L 0-24 Final [facility] orp IU/L ([facility]): [address] [facility] 07/10/2018 Lipid Panel, ? Cholesterol, 163 mg/dL 100- 169 Final [facility] Serum Total mg/dL ([facility]): [address] [facility] ? ? Above Triglycerides 134 mg/dL 0-89 Final [facility] High mg/dL ([facility]): Normal [address] [facility] ? ? ? HDL Cholesterol 45 mg/dL >39 Final [facility] mg/dL ([facility]): [address] [facility] ? ? ? VLDL 27 mg/dL 5-40 Final [facility] Cholesterol Sarabjit mg/dL ( [place]): [address] [facility] ? ? ? LDL Cholesterol 91 mg/dL 0-109 Final [facility] Calc mg/dL ([facility]): [address] [facility] ? ? ? Comment: clothing man ? Cancel [facility] led ([facility]): [address] [facility] ? ? ? T. chol/HDL 3.6 ratio 0.0-4.4 Final [facility] Ratio ratio ([facility]): [address] [facility] 07/10/2018 HbA1C ? Hemoglobin a1C 5.3 % 4.8-5.6 Fin al [facility] (Hemoglobin % ([facility]): a1C), Blood [address] [facility] Past Encounters 02/24/2022 Well Child; Anxiety; Attention Deficit H yperactivity Disorder; Dysmenorrhea; Contraception Care Management; Normal Weight; Exercises Education, Guidance, and Counseling; Diet Education; Screening for Disorder; Administration of Influenza Vaccine Meena Houston MD: [address] [facility], [address], [place] [address], Ph. [phone] 09/25/2021 Mediastinal Mass Meena Houston MD: [address] [facility], [address], [place] [address], Ph. [phone] 09/11/2021 Anxiety; Attention Deficit Hyperactivity Disorder; Dysmenorrhea Meena Houston MD: [address] [facility], [facility] [address], [place] [address], Ph. [phone] 01/23/2021 Anxiety; Attention Deficit Hyperactivity Disorder; Dysmenorrhea; Wheezing Meena Houston MD: [address] [facility], [address], [place] [address], Ph. [phone] Social History None recorded. Vaccine List Vaccine [...] lbs 22.3 kg/m2 118/62 mm[Hg] 01/08/2020 10:00AM [facility] Virtual Visit Weight 122 lbs 16 [...]
--- OUTSIDE RECORDS SUMMARY | 2022-04-12 02:34 | XMS_ITS | Encounter Summary ---
[...] care management would like to get nexplanon. 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 ? drospirenone 3 mg-ethinyl estradiol 0 .03 mg tablet 6. Normal weight 7. Exercises education, guidance, and c ounseling 8. Diet education 9. Screening for disorder ? chlamydia + gonorrhea DNA panel, unsp ecified specimen 10. Administration of influenza vaccine ? Fluzone Quad [id number] (PF) 60 mcg (1 5 mcg x [...] Administration of Influenza Vaccine Meena Houston MD: [address] [place] [address], [address], [place] [address], Ph. [phone] History of Present Illness None recorded. Review [...] 11-13 Yr WC Female Reported By: Patient Sales Leader: Sales Leader: present General Appearance: General: well developed, wel [...]
--- NOTE | 2022-04-12 03:01 | ED.GENADULT ---
HPI - General Adult General Chief complaint: Abdominal Pain Stated complaint: Abdominal Cramping post IUD insertion Time Seen by Provider: 04/12/22 01:17 History of Present Illness HPI narrative: Patient presents to the emergency department 5 days post IUD insertion. OB notes reviewed. She states that she has been having heavy bleeding for the last 5 days, worse today. She has a tampon in and cannot quantify the amount of bleeding for me. She states that she has also had worsening depression since the IUD was inserted but again, this has only been a few days. She states that she is having severe cramping. She is very vague when I review her pain management plan. States that she last took some Tylenol about 2 hours ago when I review how much, she reports 400 mg. It does not sound as though she has been taking this regularly. She has not been using Tylenol also. She has not tried heat or other pain management strategies. Reports pelvic crampy pain, comes in waves. No nausea, no vomiting. She reports that [place] and was told to come to the emergency department for a pelvic ultrasound and IUD removal. Patient has been evaluated in our ED recently for palpitations, found to be benign workup. She has a notable history of ADHD and depression. Her home medications are Vyvanse and sertraline. She also reports a history of menorrhagia and has been on several oral contraceptives. It sounds as though she has had heavy bleeding even on the use products. Am uncertain why she is now in the emergency department at 2:00 a.m. for these complaints that have been present for several days. Socially denies any pertinent travel or intoxication. ROS is notable for the pelvic complaints above. Denies any generalized, other GI, gynecological, skin changes. Notable for worsening depression but denies any suicidality or unsafe thoughts. Related Data Home Medications Medication Instructions Recorded Confirmed sertraline 100 mg tablet mg 04/01/22 04/07/22 lisdexamfetamine 30 mg capsule 30 mg PO QAM 04/07/22 04/12/22 (Vyvanse) levonorgestrel 20 mcg/24 hours (8 intrauterine 04/12/22 yrs) 52 mg intrauterine device (Mirena) Allergies Allergy/AdvReac Type Severity Reaction Status Date / Time No Known Drug Allergies Allergy Verified 04/07/22 14:05 PFSH PFSH Social History Smoking Status: Never smoker Do you use any of these nicotine containing products: None Second hand tobacco smoke exposure: No How often do you have a drink containing alcohol: never How often do you have six or more drinks on one occasion: Never AUDIT-C Alcohol total score: 0 Non-prescribed substance use: denies use service: No Exam Const: Vital Signs, click to edit/add: Vital Signs - 24 hr 04/12/22 01:29 Temperature 97.0 F L Pulse Rate [Right Pulse Oximeter] 75 Respiratory Rate 16 Blood Pressure [Le ft Upper Arm] 140/97 H Pulse Oximetry 98 Oxygen Delivery Me thod Room Air Documenting provider has reviewed patient's vital signs: yes Common normals: no apparent distress General appearance: cooperative, comfortable and well kempt HENMT: Common normals: normocephalic Head and scalp: normocephalic Eye: Other: Normal eye contact, normal visual tracking. Resp: Common normals: normal respiratory effort Effort & inspection: able to speak in complete sentences GI: Other: Nondistended abdomen, no guarding. : Other: Normal-appearing external genitalia, tolerated speculum exam very well. There is very scant blood-tinged mucus from cervical os, IUD strings are not visible. Q-tip was gently used to probe the mucus to see if I could bring down any IUD strings, on several attempts unfortunately, I was not able to locate any IUD strings. The cervix does appear open about a 0.5 cm which could just be from recent instrumentation. It appears overall Meland press with certainly no cervical motion tenderness. No unusual discharge or odor. Neuro: Speech: speech normal Motor exam: no tremor noted and no movement abnormalities noted Psych: Appearance: well kempt Insight: fair Judgement: fair Other: Anxious, thought process logical Skin: Common normals: no rashes or lesions noted General skin exam: no rashes or lesions noted Course Vital Signs Vital signs: Initial Vital Signs Temperature 97.0 F L 04/12/22 01:29 Temperature Source Temporal Artery Scan 04/12/22 01:29 Pulse Rate 75 04/12/22 01:29 Respiratory Rate 16 04/12/22 01:29 Blood Pressure 140/97 H 04/12/22 01:29 Blood Pressure Mean 111 04/12/22 01:29 Blood Pressure Position Sitting 04/12/22 01:29 Pulse Oximetry 98 04/12/22 01:29 Oxygen Delivery Method 04/12/22 01:29 Vital Signs Temperature 97.0 F L 04/12/22 01:29 Pulse Rate 75 04/12/22 01:29 Respiratory Rate 16 04/12/22 01:29 Blood Pressure 140/97 H 04/12/22 01:29 Pulse Oximetry 98 04/12/22 01:29 Oxygen Delivery Method 04/12/22 01:29 Temperature 97.0 F L 04/12/22 01:29 Pulse Rate 75 04/12/22 01:29 Respiratory Rate 16 04/12/22 01:29 Blood Pressure 140/97 H 04/12/22 01:29 Pulse Oximetry 98 04/12/22 01:29 Oxygen Delivery Method 04/12/22 01:29 Medical Decision Making MDM Narrative Medical decision making narrative: Could not visualize IUD strings on exam which I was hoping to be used to reassure patient. I elected to perform an x-ray which does show an IUD in the pelvis though I cannot ensure that this is intrauterine. Counseled patient that we would have about a 5-7 hour wait for ultrasound, as this would not be an urgent indication to call them in in the middle of the night. There are no signs of active hemorrhage, sepsis or severe pain with perforation. I offered her the option to stay for the ultrasound or to manage with Tylenol and ibuprofen and call her OB in the morning to arrange an ultrasound. She states that this would be her preference, to go home, sleep and call her OB in the morning. Reminded patient that just because I can see the IUD on x-ray does not mean that it is in proper placement. She appears quite comfortable in the exam room. I offered her Tylenol for pain which she originally accepted but then the nurse told me that she declined after. We reviewed proper dosing of Tylenol and ibuprofen for pain control, heating pads and the expectation that it can actually take several months to regulate menses with an IUD. She verbalizes understanding and agreement and will call her Ob provider when the office opens this morning. Differential diagnosis including normally placed IUD with typical side effects, pelvic infection, IUD migration, uterine perforation. Comfortable exam is reassuring, no signs of unstable vitals or heavy bleeding. Patient elects to discharge home or outpatient ultrasound with primary provider Discharge Plan Discharge Clinical Impression: Pain due to intrauterine contraceptive device (IUD) Patient Disposition: Home w/ Parent or Adult Condition: Stable Additional Instructions: As we discussed, I cannot see your IUD strings but that does not mean necessarily at the IUD is in the wrong place. We were able to clearly see the IUD in your pelvis on x-ray. Unfortunately, that does not tell me if it is in the uterus where it belongs or has migrated to a different part of the abdominal cavity. We would need an ultrasound to tell this better. Unfortunately this is not available at 2:00 a.m. in the emergency room. I gave you the option to wait until they arrive after 7:00 a.m. and you elect to go home with close outpatient follow-up with your OB. I do think that an ultrasound needs to be done within the next couple of days. Based on your pelvic exam, there are no signs of active heavy bleeding or any other complication. This is reassuring. I will send a copy of my note to your OB as well, please call their office when they open this morning to get in for evaluation. In the meantime, I want you to take 600 mg of ibuprofen which is 3 tablets every 6 hours for pain. If you are still having very bothersome pain, alternate in Tylenol 1000 mg which is 2 extra-strength or 3 regular tablets every 6 hours as well. You were given 1000 mg of Tylenol in the ER, your next dose could be given at 8:30 a.m. for Tylenol and your next dose of ibuprofen can be taken at 5:30 a.m.. Ibuprofen is typically more effective. Use a heating pad and limit your activity to gentle exercises and typical daily activities for the next few days, foremost, the pain does improve significantly within a few more days. More care will be needed if the IUD is not in proper placement, that will be determined by the ultrasound. Come back to the emergency department if your soaking through 1 pad per hour in bleeding and or have severe weakness. If you continue to have mood changes under IUD, discuss this with your Ob provider. Activity Level: Activity as Tolerated Discharge Diet: Regular Prescriptions: No Action Vyvanse 30 mg capsule 30 mg PO QAM sertraline 100 mg tablet Mirena 20 mcg/24 hours (8 yrs) 52 mg intrauterine device intrauterine Follow Up/Referrals: Provider,Not a Local [Primary Care Provider] - Mari Guzman MD [Staff Physician] - 2 Days (IUD check, need ultrasound) Stand Alone Forms: [employer] Info Instructions
== END 2022-04-12 02:41 | disposition home or self-care (01) ==
LOC: ED 02:31
PROVIDERS: Emergency Provider Family Medicine
DX: G89.18 Other acute postprocedural pain (principal); Z97.5 Presence of (intrauterine) contraceptive device
CPT/HCPCS: 72170; 99282; 99283

== ENCOUNTER 2022-05-10 14:37 | Outpatient (CLI) | payer OTHER, SELFPAY ==
--- NOTE | 2022-05-10 14:45 | CRLHL7_ITS ---
For Patients: As a result of the Century Cures Act, medical imaging exams and procedure reports are released immediately into your electronic medical record. You may view this report before your referring provider. If you have questions, please contact your health care provider. CLINICAL HISTORY: missing IUD strings TECHNIQUE: 2D bradford scale and color Doppler images were acquired of the pelvis using a transvaginal approach. FINDINGS: On transvaginal imaging, the myometrium has a normal uniform echotexture. Intrauterine device is located within the endometrial canal. The left ovary measures 2.8 x 1.4 x 1.0 cm in size and the right ovary measures 3.0 x 1.9 x 1.9 cm. The ovaries demonstrate normal arterial and venous blood flow on color Doppler analysis. There are no suspicious fluid collections within the cul-de-sac. IMPRESSION: IUD is located within the mid/fundal endometrium. Dictated by Craig Mitchell MD @ 05/10/2022 4:02:45 PM (Electronically Signed)
--- OUTSIDE RECORDS SUMMARY | 2022-05-10 14:53 | XMS_ITS ---
:2000 Author Care Team Providers Name Role Phone BenignoAlcides beltran Primary Care Provider Unavailable Allergies Code Code [...] drospirenone 3 mg-ethinyl estradiol 0.03 mg tablet Completed ? 04/12/2022 TAKE ONE TABLET BY MOUTH EVERY DAY [...] Completed ? 09/11/2021 melatonin Completed ? 02/24/2022 Mirena Active ? Not available ofloxacin 0.3 % ear drops Completed ? [...] FOR 7 DAYS sertraline 100 mg tablet Completed ? 022 TAKE 1 TABLET BY MOUTH EVERY DAY sertraline 25 mg tablet Completed ? 01/08/20 20 sertraline 50 mg tablet Active ? Not avai lable Take 3 tablets every day by oral route for 30 days. Vyvanse 10 mg capsule Completed ? 01/23/2021 [...] not not Final [facility] RNA detected detecte ([facility]): (COVID-19), d [address], QL, bridge toll collector-PCR, [facility] Respiratory Specimen 11/05/2019 CT + NG RNA, UR ? Chlamydia negative negativ Final [facility] PCR, Trachomatis, SABRINA e ([place]): Unspecified [address], Specimen [place] ? ? UR ? Neisseria negative negativ Final Lab varun Gonorrhoeae, SABRINA e ([place]): [address], [place] 11/05/2019 Hsv (1+2) ? Hsv 1 IgG, Type <0.91 0.00-0. Final [facility] Igg Ab, Spec index 90 ([facility] on): Serum index [address], [place] ? ? ? Hsv 2 IgG, Type <0.91 0.00-0. Final [facility] Spec index 90 ([facility]): index [address], [place] 11/05/2019 RPR (Rapid ? Rpr non non Final [facility] Plasma reactive reactiv ([facility]): Reagin), e [address], Serum [place] 11/05/2019 HIV 1+2 AB + ? HIV Screen 4TH non non Final [facility] HIV 1 P24 Generation Wrfx reactive reactiv ([place]): Ag, e [address], Qualitative [facility] Immunoassay, Serum 12/20/2018 TSH + Free ? Tsh 1.430 0.450-4 Final [facility] T4, Serum uIU/mL .500 ([facility] [place]): uIU/mL [address] [facility], [place] ? ? ? T4,Free(direct) 1.10 0.93-1. Final [facility] NG/dL 60 ([facility] n): NG/dL [address] [facility], [place] 12/20/2018 CBC W/ Auto ? Wbc 7.4 3.4-10. Final [facility] Diff x10e3/uL 8 ([facility]): x10e3/u [address], L [place] ? ? ? Rbc 4.94 3.77-5. Final [facility] x10e6/uL 28 ([facility]): x10e6/u [address], L [place] ? ? ? Hemoglobin 13.9 g/dL 11.1-15 Final [facility] .9 g/dL [facility] [address], [place] ? ? ? Hematocrit 42.4 % 34.0-46 Final [facility] orp .6 % ([facility] n): [address], [place] ? ? ? Mcv 86 fL 79-97 Final [facility] fL ([facility] n): [address], [place] ? ? ? Mch 28.1 pg 26.6-33 Final [facility] .0 pg ([facility] n): [address], [place] ? ? ? Mchc 32.8 g/dL 31.5-35 Final [facility] p .7 g/dL ([facility] [address], [place] ? ? ? Rdw 12.4 % 12.3-15 Final [facility] .4 % ([facility] n): [address], [place] ? ? ? Platelets 317 150-450 Final [facility] r[facility] x10e3/uL x10e3/u ([facility]): L [address], [place] ? ? ? Neutrophils 58 % not Final [facility] orp estab. ([facility] n): % [address], [place] ? ? ? Lymphs 31 % not Final [facility] estab. ([facility] n): % [address], [place] ? ? ? Monocytes 9 % not Final [facility] p estab. ([facility] n): % [address], [place] ? ? ? Eos 1 % not Final [facility] estab. ([facility] n): % [address], [place] ? ? ? Basos 1 % not Final [facility] estab. ([facility] n): % [address], [place] ? ? ? Immature Cells repairer auto clocks ? Cancel [facility] led ([facility] n): [address], [place] ? ? ? Neutrophils 4.4 1.4-7.0 Final Lab varun ([place]) x10e3/uL x10e3/u ( [place]): L [address], [place] ? ? ? Lymphs 2.3 0.7-3.1 Final [facility] (Absolute) x10e3/uL x10e3/u ([place]): L [address], [place] ? ? ? Monocytes(absol 0.7 0.1-0.9 Final [facility]) x10e3/uL x10e3/u ([facility]): L [address] [facility], [place] ? ? ? Eos (Absolute) 0.1 0.0-0.4 Final [facility] x10e3/uL x10e3/u ([facility]): L [address] [facility], [place] ? ? ? Baso (Absolute) 0.1 0.0-0.3 Final [facility] x10e3/uL x10e3/u ([facility]): L [address] [facility], [place] ? ? ? Immature 0 % not Final [facility] Granulocytes estab. ([facility]): % [address] [facility], [place] ? ? ? Immature Grans 0.0 0.0-0.1 Final [facility] (Abs) x10e3/uL x10e3/u ([facility]): L [address] [facility], [place] ? ? ? Nrbc repairer auto clocks ? Cancel [facility] led ([facility]): [address] [facility] ? ? ? Hematology repairer auto clocks ? Cancel [facility] r[facility] Comments: led ([facility]): [address] [facility] 12/20/2018 CMP, Serum ? Glucose 80 mg/dL 65-99 Final [facility] or Plasma mg/dL ([facility]): [address] [facility] ? ? ? Bun 10 mg/dL 5-18 Final [facility] mg/dL ([facility]): [address] [facility] ? ? Below Creatinine 0.54 0.57-1. Final [facility] orp Low mg/dL 00 ([facility]): Normal mg/dL [address] [facility] ? ? ? BUN/creatinine 19 10-22 Final [facility] Ratio ([facility]): [address] [facility], [place] ? ? ? Sodium 141 134-144 Final [facility] mmol/L mmol/L ([facility]): [address] [facility] ? ? ? Potassium 4.4 3.5-5.2 Final [facility] r[facility] mmol/L mmol/L ([facility]): [address] [facility] ? ? ? Chloride 105 96-106 Final [facility] mmol/L mmol/L ([facility]): [address] [facility] ? ? ? Carbon Dioxide, 22 mmol/L 20-29 Renetta l [facility] Total mmol/L ([facility] n): [address], [place] ? ? ? Calcium 9.6 mg/dL 8.9-10. Final [facility] orp 4 mg/dL ([facility] on): [address], [place] ? ? ? Protein, Total 6.8 g/dL 6.0-8.5 Final [facility] g/dL ([facility] n): [address], [place] ? ? ? Albumin 4.3 g/dL 3.5-5.5 Final [facility] g/dL ([facility] n): [address], [place] ? ? ? Globulin, Total 2.5 g/dL 1.5-4.5 Renetta l [facility] g/dL ([facility] n): [address], [place] ? ? ? A/g Ratio 1.7 1.2-2.2 Final [facility] rp ([facility] n): [address], [place] ? ? ? Bilirubin, 0.3 mg/dL 0.0-1.2 Final [facility] Total mg/dL ([facility]): [address], [place] ? ? ? Alkaline 61 IU/L 45-101 Final [facility] p Phosphatase IU/L ([facility]): [address], [place] ? ? ? Ast (Sgot) 8 IU/L 0-40 Final [facility] rp IU/L ([facility]): [address], [place] ? ? ? Alt (Sgpt) 8 IU/L 0-24 Final [facility] r[facility] IU/L ([facility]): [address], [place] 12/20/2018 Vitamin B12 ? Vitamin B12 326 pg/mL 232-12 4 Final [facility] + Folate, 5 pg/mL ([facility] [place]): Serum or [address], Blood [place] ? ? ? Folate (Folic >20.0 >3.0 Final [facility] Acid), Serum NG/mL NG/mL ([facility]): [address], [place] 12/20/2018 Vitamin D, ? Vitamin D, 34.0 30.0-10 Fin al [facility] 25-Hydroxy, 25-Hydroxy NG/mL 0.0 ( [place]): Total, Serum NG/mL [address] [facility] [place] 12/20/2018 Ferritin, ? Ferritin, Serum 49 NG/mL 15-77 Final [facility] Serum or NG/mL ([facility]): Plasma [address] [facility] [place] 07/10/2018 CMP, Serum ? Glucose 87 mg/dL 65-99 Final [facility] or Plasma mg/dL ([facility]): [address] [facility] [place] ? ? ? Bun 14 mg/dL 5-18 Final [facility] mg/dL ([facility]): [address] [facility], [place] ? ? ? Creatinine 0.60 0.57-1. Final [facility] orp mg/dL 00 ([facility]): mg/dL [address] [facility] [place] ? ? Above BUN/creatinine 23 10-22 Final [facility] High Ratio ([facility]): Normal [address] [facility] ? ? ? Sodium 139 134-144 Final [facility] mmol/L mmol/L ([facility]): [address] [facility] ? ? ? Potassium 4.8 3.5-5.2 Final [facility] mmol/L mmol/L ([facility]): [address] [facility] ? ? ? Chloride 98 mmol/L 96-106 Final [facility] orp mmol/L ([facility]): [address] [facility] ? ? ? Carbon Dioxide, 22 mmol/L 20-29 Renetta l [facility] Total mmol/L ([facility]): [address] [facility] ? ? ? Calcium 10.2 8.9-10. Final [facility] mg/dL 4 mg/dL ([facility] on): [address] [facility] ? ? ? Protein, Total 7.2 g/dL 6.0-8.5 Final [facility] g/dL ([facility]): [address] [facility] ? ? ? Albumin 4.9 g/dL 3.5-5.5 Final [facility] g/dL ([facility]): [address] [facility] ? ? ? Globulin, Total 2.3 g/dL 1.5-4.5 Renetta l [facility] g/dL ([facility]): [address] [facility] ? ? ? A/g Ratio 2.1 1.2-2.2 Final [facility] r[facility] ([facility]): [address] [facility] ? ? ? Bilirubin, 0.2 mg/dL 0.0-1.2 Final [facility] Total mg/dL ([facility]): [address] [facility] ? ? ? Alkaline 96 IU/L 45-101 Final [facility] p Phosphatase IU/L ([facility]): [address] [facility] ? ? ? Ast (Sgot) 13 IU/L 0-40 Final [facility] orp IU/L ([facility]): [address] [facility] ? ? ? Alt (Sgpt) 19 IU/L 0-24 Final [facility] orp IU/L ([facility]): [address] [facility] 07/10/2018 Lipid Panel, ? Cholesterol, 163 mg/dL 100- 169 Final [facility] Serum Total mg/dL ([facility]): [address] [facility] ? ? Above Triglycerides 134 mg/dL 0-89 Final [facility] High mg/dL ([facility]): Normal [address] [facility] ? ? ? HDL Cholesterol 45 mg/dL >39 Final [facility] mg/dL ([facility]): [address] [facility] ? ? ? VLDL 27 mg/dL 5-40 Final [facility] Cholesterol Sarabjit mg/dL ( [place]): [address] [facility] ? ? ? LDL Cholesterol 91 mg/dL 0-109 Final [facility] Calc mg/dL ([facility]): [address] [facility] ? ? ? Comment: repairer auto clocks ? Cancel [facility] led ([facility]): [address] [facility] ? ? ? T. chol/HDL 3.6 ratio 0.0-4.4 Final [facility] Ratio ratio ([facility]): [address] [facility] 07/10/2018 HbA1C ? Hemoglobin a1C 5.3 % 4.8-5.6 Fin al [facility] (Hemoglobin % ([facility]): a1C), Blood [address] [facility] Past Encounters 02/24/2022 Well Child; Anxiety; Attention Deficit H yperactivity Disorder; Dysmenorrhea; Contraception Care Management; Normal Weight; Exercises Education, Guidance, and Counseling; Diet Education; Screening for Disorder; Administration of Influenza Vaccine Meena Houston MD: [id number], [address], [place] [address], Ph. [phone] 09/25/2021 Mediastinal Mass Meena Houston MD: [id number], [address], [place] [address], Ph. [phone] 09/11/2021 Anxiety; Attention Deficit Hyperactivity Disorder; Dysmenorrhea Meena Houston MD: [id number], [address], [place] [address], Ph. [phone] 01/23/2021 Anxiety; Attention Deficit Hyperactivity Disorder; Dysmenorrhea; Wheezing Meena Houston MD: [id number], [address], [place] [address], Ph. [phone] Social History None recorded. Vaccine List Vaccine [...] lbs 22.3 kg/m2 118/62 mm[Hg] 01/08/2020 10:00AM [facility] Wellness Virtual Visit Weight 122 lbs [...]
--- OUTSIDE RECORDS SUMMARY | 2022-05-10 14:54 | XMS_ITS | Encounter Summary ---
[...] care management would like to get nexplanon. 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 has seen [facility] women's care in the past. ? drospirenone 3 mg-ethinyl estradiol 0 .03 mg tablet 6. Normal weight 7. Exercises education, guidance, and c ounseling 8. Diet education 9. Screening for disorder ? chlamydia + gonorrhea DNA panel, unsp ecified specimen 10. Administration of influenza vaccine ? Fluzone Quad [id number] (PF) 60 mcg (1 5 mcg x [...] smoke, drink,?or do drugs. Reminders Provider Appointments Behavioral Health Visit 05/18/2022 Meena Gonzalez 11:00AM MD [facility] Chlamydia + Gonorrhea DNA 02/24/2022 In-O ffice Order Panel, Unspecified Specimen Referral None recorded. ? ? Procedures Screening Test of Visual 02/24/2022 In-Of fice Order Acuity, Quantitative, Bilateral (PROC) Surgeries None recorded. ? ? Imaging None recorded. ? ? Medications Name Start Date ? ? Mirena ? sertraline 50 mg tablet ? Take 3 tablets every day by oral route for 30 days. Vyvanse 30 mg capsule ? Take 1 [...] of Influenza Vaccine Meena Houston MD: [id number] [facility], [address], [place] [address], Ph. [phone] History of Present Illness None recorded. Review [...] 11-13 Yr WC Female Reported By: Patient Record Cutter: Record Cutter: present General Appearance: General: well developed, wel [...]
== END 2022-05-10 14:38 | disposition home or self-care (01) ==
LOC: US 14:38
PROVIDERS: Visit Provider Obstetrics & Gynecology
DX: T83.32XA Displacement of intrauterine contraceptive device, initial encounter (principal); Z97.5 Presence of (intrauterine) contraceptive device
CPT/HCPCS: 76830